=== PATIENT | female | born 1995 | race Caucasian/White ===

== ENCOUNTER 2017-03-03 11:42 | Emergency (ER) | payer OTHER | END 2017-03-03 12:13 | disposition home or self-care (01) | LOC: NAV ERS 11:42 | DX: J06.9 Acute upper respiratory infection, unspecified (principal); F32.9 Major depressive disorder, single episode, unspecified; F17.210 Nicotine dependence, cigarettes, uncomplicated | CPT/HCPCS: 99283 ==

== ENCOUNTER 2017-06-20 12:41 | Emergency (ER) | payer SELFPAY ==
[2017-06-20 13:57] LABS: Pregnancy Test - Urine (BHCG) Negative (Negative); Pregu Control Background? CLEAR/WHITE (CLR/WHITE); Pregu Control Bar Appear? YES (CONTROL BAR)
[2017-06-20] MEDS ORDERED: Ketorolac Tromethamine 60 MG/2 ML VIAL ONE (14:17)
== END 2017-06-20 14:25 | disposition home or self-care (01) ==
LOC: NAV ERS 12:41
DX: J11.1 Influenza due to unidentified influenza virus with other respiratory manifestations (principal); F32.9 Major depressive disorder, single episode, unspecified; Z87.891 Personal history of nicotine dependence
CPT/HCPCS: 81025; 96372; J1885